=== PATIENT | male | born 1980 | race Caucasian/White ===

== ENCOUNTER 2017-11-23 16:56 | Emergency (ER) | payer BC, MEDICAID ==
[~2017-11-23] VITALS: Ht 175.3 cm; Wt 68.9 kg
[~2017-11-23 16:56] MED LIST: ACYC-109 PO; PRD20T PO
[2017-11-23] MEDS ORDERED: TETANUS,DIPTH,PERTUSS P/F (BOOSTRIX) 0.5 ML VIAL IM STA (17:22)
[2017-11-23] MEDS ORDERED: NS IV 1000 ML 1,000 ML IV ONE (17:22)
[2017-11-23] MEDS ORDERED: NS 250 ML (IVPB) BAG IV ONE (17:30)
[2017-11-23] MEDS ORDERED: IOHEXOL 350 MG/ML 100 ML (OMNIPAQUE 350) VIAL IV ONE (17:30)
[2017-11-23 17:36] LABS: HEMOGLOBIN 15.4 G/DL (13.3-17.7); MEAN PLATELET VOLUME 10.3 FL (7.4-10.4); RED BLOOD COUNT 4.87 10^6/uL (4.35-5.85); RED CELL DISTRIBUTION WIDTH 12.8 % (10.0-14.5); WHITE BLOOD COUNT 8.5 10^3/uL (4.3-11.0)
[2017-11-23] MEDS: CATHETER FLUSH 10 ML SYR IV PRN ×2 (17:48→17:49)
--- NOTE | 2017-11-23 17:53 | Diagnostic Imaging Report ---
INDICATION: Chest injury. TECHNIQUE: Single PA view of the chest is obtained. COMPARISON: No previous study is available for comparison at this time. FINDINGS: Heart size and pulmonary vasculature are within normal limits, and the lungs are clear, bilaterally. IMPRESSION: Unremarkable chest. Dictated by: Dictated on workstation # [id number]
[2017-11-23 17:55] LABS: ALANINE AMINOTRANSFERASE 24 U/L (0-55); ALBUMIN 4.7 GM/DL (3.2-4.5); ALKALINE PHOSPHATASE 58 U/L (40-136); BILIRUBIN,DIRECT 0.3 MG/DL (0.0-0.3); BILIRUBIN,INDIRECT 0.7 MG/DL; BUN/CREATININE RATIO 13; CARBON DIOXIDE 24 MMOL/L (21-32); CHLORIDE 109 MMOL/L (98-107); CREATININE SERUM 1.32 MG/DL (0.60-1.30); GFR ESTIMATED > 60; GLUCOSE 138 MG/DL (70-105); POTASSIUM 4.7 MMOL/L (3.6-5.0); SODIUM 144 MMOL/L (135-145); TOTAL PROTEIN 7.4 GM/DL (6.4-8.2)
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
[2017-11-23 18:55] VITALS: BP 148/89
== END 2017-11-23 18:55 | disposition home or self-care (01) ==
LOC: EDUNIT# 16:56 → ER 16:58
DX: S20.212A Contusion of left front wall of thorax, initial encounter (principal); S40.212A Abrasion of left shoulder, initial encounter; S50.312A Abrasion of left elbow, initial encounter; S90.512A Abrasion, left ankle, initial encounter; F84.0 Autistic disorder; R40.2142 Coma scale, eyes open, spontaneous, at arrival to emergency department; R40.2252 Coma scale, best verbal response, oriented, at arrival to emergency department; R40.2362 Coma scale, best motor response, obeys commands, at arrival to emergency department; V03.00XA Pedestrian on foot injured in collision with car, pick-up truck or van in nontraffic accident, initial encounter; Y92.481 Parking lot as the place of occurrence of the external cause
CPT/HCPCS: 36415; 70450; 71045; 71260; 72125; 74177; 80048; 80076; 80320; 85027; 90471; 90715; 96360

== ENCOUNTER 2019-10-23 13:11 | Emergency (ER) | payer MEDICAID ==
[~2019-10-23] VITALS: Ht 177 cm; Wt 70.0 kg
[2019-10-23] MEDS ORDERED: RABIES IMMUNE GLOBULIN 300 UNIT/ML 5 ML (HyperRAB) IM ONE (14:00)
[2019-10-23] MEDS ORDERED: RABIES VACCINE HUMAN DIPL CELL 1 ML/2.5 UNITS SYR IM ONE (14:00)
[2019-10-23] MEDS ORDERED: ONDANSETRON 4 MG (ZOFRAN) ORAL DISSOLVE TAB SL ONE (14:30)
--- NOTE | 2019-10-23 14:40 | ED General ---
General Chief Complaint: Bite-Animal/Human/Insect Stated Complaint: DOG BITE Nursing Triage Note: THE PT IS AMBULATORY TO THE ROOM WITHOUT DIFFICULTY. NO ACTIVE BLEEDING IS SEEN ON ARRIVAL. NO DISTRESS IS SEEN. LOC IS NORMAL FOR THE PT. THE PT STATES THAT HE WAS BIT BY A DOG YESTERDAY. THERE IS A SMALL SKIN BREAK TO HIS LEFT ARM. Nursing Sepsis Screen: No Definite Risk Source of Information: Patient, Family Exam Limitations: No Limitations History of Present Illness Date Seen by Provider: October 23, 2019 Time Seen by Provider: 13:45 Initial Comments This 39-year-old gentleman presents to the emergency room with a dog bite to the left forearm. This occurred yesterday while he was running. Although the dog was leash and with an state editor, he does not know the whereabouts of the dog or its vaccination status. The wound has scabbed over. He has Christine been started on antibiotics but was sent to the ER for rabies vaccination. He has no significant pain and there is no active bleeding. He is up-to-date on his tetanus immunizations. Allergies and Home Medications Allergies Coded Allergies: No Known Drug Allergies (Unverified , 04/12/09) Home Medications No Active Prescriptions or Reported Meds Patient Home Medication List Home Medication List Reviewed: Yes Review of Systems Review of Systems Constitutional: no symptoms reported EENTM: no symptoms reported Respiratory: no symptoms reported Cardiovascular: no symptoms reported Gastrointestinal: no symptoms reported Genitourinary: no symptoms reported Musculoskeletal: see HPI Skin: see HPI Psychiatric/Neurological: No Symptoms Reported Hematologic/Lymphatic: No Symptoms Reported Past Nzabwpu-Ucefeq-Ixxulx Hx Past Med/Social Hx: Reviewed Nursing Past Med/Soc Hx Patient Social History Recent Foreign Travel: No Contact w/Someone Who Travel: No Recent Infectious Disease Expo: No Recent Hopitalizations: No Physical Abuse: No Sexual Abuse: No Mistreated: No Fear: No Past Medical History Surgeries: No Respiratory: No Cardiac: No 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 ) Genitourinary: No Gastrointestinal: No Musculoskeletal: No Endocrine: No HEENT: No Cancer: No Psychosocial: No Integumentary: No Blood Disorders: No Family Medical History No Pertinent Family Hx Physical Exam Vital Signs Vital Signs - First Documented 10/23/19 10/23/19 13:21 14:53 Temp 36.8 Pulse 63 Resp 16 B/P (MAP) 126/88 (101) Pulse Ox 99 Capillary Refill : Less Than 3 Seconds Height, Weight, BMI Height: 5'9.00" Weight: 152lbs. oz. 68.500933ft; 22.00 BMI Method:Stated General Appearance: No Apparent Distress, WD/WN HEENT: Normal ENT Inspection Respiratory: No Respiratory Distress Extremity: Other (scabbed laceration on the left forearm with mild ecchymosis and swelling. No significant tenderness with palpation or range of motion.) Neurologic/Psychiatric: Alert, Oriented x3, No Motor/Sensory Deficits, Normal Mood/Affect, stemmer machine II-XII Norm as Tested Skin: Normal Color, Warm/Dry, Other (see above) Progress/Results/Core Measures Suspected Sepsis Recent Fever Within 48 Hours: No Infection Criteria Present: None New/Unexplained Altered Menta: No Sepsis Screen: No Definite Risk SIRS Temperature: Pulse: 63 Respiratory Rate: Blood Pressure 126 /88 Mean: 101 Results/Orders My Orders Orders - JADYN HARPER MD Rabies Vaccine Human Dipl Cell (Rabavert (10/23/19 14:00) Rabies Immune Globulin/Pf Inj (Hyperrab (10/23/19 14:00) Ondansetron Oral Dissolve Tab (Zofran (10/23/19 14:30) Medications Given in ED Current Medications Medications Dose Ordered Sig/So Route Start Time Stop Time Status Last Admin Dose Admin Ondansetron HCl 4 mg ONCE ONCE SL 10/23/19 14:30 10/23/19 14:32 DC 10/23/19 14:48 4 MG Rabies Immune Globulin 20 UNITS/KG ONCE ONCE IM 10/23/19 14:00 10/23/19 14:25 DC 10/23/19 14:47 1,400 UNIT Rabies Vaccine Human Diploid Cell 1 ml ONCE ONCE IM 10/23/19 14:00 10/23/19 14:01 DC 10/23/19 14:29 1 ML Vital Signs/I&O 10/23/19 10/23/19 13:21 14:53 Temp 36.8 36.8 Pulse 63 63 Resp 16 B/P (MAP) 126/88 (101) 120/80 Pulse Ox 99 99 Capillary Refill : Less Than 3 Seconds Blood Pressure Mean: 101 Progress Note : Progress Note Rabies immunoglobulin and vaccine were administered in order to complete the series was provided. Departure Impression Primary Impression: Dog bite Qualified Codes: W54.0XXA - Bitten by dog, initial encounter Additional Impressions: Forearm laceration Qualified Codes: S51.812A - Laceration without foreign body of left forearm, initial encounter Need for rabies vaccination Disposition: HOME, SELF-CARE Condition: Improved Departure-Patient Inst. Decision time for Depature: 14:39 Referrals: MARLON RAMIREZ MD (PCP/Family) Primary Care Physician Patient Instructions: Rabies Immune Globulin (Human), Rabies Vaccine Add. Discharge Instructions: Complete your antibiotic as prescribed. Return to the hospital on October 25 for the next vaccine in the series. Return to care if you have any further problems or concerns. All discharge instructions reviewed with patient and/or family. Voiced understanding. Scripts No Active Prescriptions or Reported Meds Copy Copies To 1: MARLON RAMIREZ MD, JOSHUA T MD October 23, 2019 14:40
[2019-10-23 14:53] VITALS: BP 120/80
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
== END 2019-10-23 14:54 | disposition home or self-care (01) ==
LOC: EDUNIT# 13:11 → ER 13:13
DX: S51.812A Laceration without foreign body of left forearm, initial encounter (principal); Z23 Encounter for immunization; Z20.3 Contact with and (suspected) exposure to rabies; W54.0XXA Bitten by dog, initial encounter
CPT/HCPCS: 90375; 90675; 99284

== ENCOUNTER 2019-11-06 14:31 | Outpatient (RCR) | payer MEDICAID ==
[2019-10-26 14:10] VITALS: BP 123/79
[2019-10-26 14:45] VITALS: BP 123/79
--- NOTE | 2019-10-30 14:02 | NUR ---
RABAVERT 2.5 UNITS TO 1 ML GIVEN IM TO LEFT DELTOID PER ORDER. EXPIRATION 09/02/2022, LOT [id number]
[2019-10-30 14:04] VITALS: BP 127/95
[~2019-11-06] VITALS: Ht 175.3 cm; Wt 67.3 kg
[~2019-11-06 14:31] MED LIST changes: +RABIES VACCINE HUMAN DIPL CELL 1 ML/2.5 UNITS SYR INJ ONE; +RABIES VACCINE HUMAN DIPL CELL 1 ML/2.5 UNITS SYR ONE
[2019-11-06 14:35] VITALS: BP 122/86
== END 2019-11-06 14:41 | disposition home or self-care (01) ==
LOC: 4THo 14:31
PROVIDERS: ATTEND Nurse Practitioner Family
DX: T14.8XXA Other injury of unspecified body region, initial encounter (principal); W54.0XXA Bitten by dog, initial encounter
CPT/HCPCS: 90471; 90675